=== PATIENT | male | born 1955 | race Caucasian/White ===

== ENCOUNTER 2018-05-08 08:21 | Outpatient (CLI) | payer BC ==
--- NOTE | 2018-05-08 14:24 | NM ---
NUCLEAR MEDICINE BONE SCAN: Date: 05/08/18 HISTORY: Renal cell carcinoma. Sclerotic lesion on CT in pelvis. FINDINGS: SPECT imaging was included. No abnormal uptake apparent within the pelvis in the region of concern on recent CT abdomen/pelvis. Degenerative-type uptake involves the shoulders and knees. At the posterior medial margin of a right mid rib, favored to be the 6th rib, a focus of increased ra diotracer uptake persists on the SPECT images. This area was not included on prior CT abdomen/pelvis. No other abnormal areas of radiotracer uptake are apparent. IMPRESSION: 1. Solitary focal abnormality at the posterior medial aspect of the right mid rib (favored to be the 6th rib). Further evaluation wanted. Please consider MRI of the right posterior chest wall, with and without Gadolinium contrast, for better characterization. 2. No abnormalities of the pelvis are demonstrated in area of concern on recent CT. POS: VICKIE
== END 2018-05-08 08:22 | disposition home or self-care (01) ==
LOC: NM 08:21
PROVIDERS: ATTEND Urology
DX: N28.89 Other specified disorders of kidney and ureter (principal); R94.8 Abnormal results of function studies of other organs and systems
CPT/HCPCS: 78306; A9503

== ENCOUNTER 2018-08-01 10:31 | Outpatient (CLI) | payer BC ==
[2018-08-01 12:41] LABS: #Basophils 0.1 thou/uL (0.0-0.2); #Eosinphils 0.2 thou/uL (0.0-0.7); #Lymphocytes 2.4 thou/uL (1.20-3.40); #Monocytes 0.6 thou/uL (0.11-0.59); #Neutrophils 2.2 thou/uL (1.40-6.50); %Basophils 1.1 % (0.0-1.0); %Eosinophils 3.8 % (0.0-10.0); %Monocytes 10.1 % (0.0-10.0); %Neutrophils 39.9 % (42.0-75.0); Hemoglobin 14.6 g/dL (14.0-18.0); Mean Corpuscular Hemoglobin 29.6 pg (27.0-31.0); Mean Corpuscular Volume 89.8 fL (78.0-98.0); Mean Platelet Volume 6.8 fL (7.4-10.4); Platelet Count 236 thou/uL (130-400); RBC Distribution Width 11.9 % (11.5-14.5); Red Blood Cell (RBC) Count 4.94 mill/uL (4.70-6.10); White Blood Cell (WBC) Count 5.4 thou/uL (4.8-10.8)
[2018-08-01 13:08] LABS: Anion Gap 12 mmol/L (10-20); BUN (Urea Nitrogen) 17 mg/dL (8.4-25.7); Calc. Creatinine Clearance 0 mL/min (70-130); Calcium 8.8 mg/dL (7.8-10.44); Carbon Dioxide 23 mmol/L (23-31); Chloride 108 mmol/L (98-107); Estimated GFR-MDRD 69; Glucose 103 mg/dL (80-115); Sodium 139 mmol/L (136-145)
== END 2018-08-01 10:32 | disposition home or self-care (01) ==
LOC: LABBT 10:31
PROVIDERS: ATTEND Surgery
DX: Z01.812 Encounter for preprocedural laboratory examination (principal); K40.20 Bilateral inguinal hernia, without obstruction or gangrene, not specified as recurrent
CPT/HCPCS: 80048; 85025

== ENCOUNTER → 2018-08-07 | Day surgery (SDC) | payer BC ==
[2018-08-01 10:56] VITALS: BMI 28.1
[~2018-08-07] MED LIST: Bupivacaine/Epinephrine 0.25% 30 ML VIAL ONE; Dexamethasone 20 MG/5 ML VIAL ONE; Fentanyl 100 MCG/2 ML VIAL ONE; Glycopyrrolate 0.2 MG/ML 5 ML SYRINGE ONE; Levofloxacin 500 mg/D5W 100 ml Premix Bag ONE; Midazolam HCl 2 mg/2 ml Vial ONE; Ondansetron PF 4 MG/2 ML Vial ONE; PHENYLEPHRINE-NS 100 MCG/ML 10 ML SYRINGE ONE; PROPOFOL 200 MG/20 ML VIAL ONE
--- NOTE | 2018-08-07 13:28 | OP ---
DATE OF PROCEDURE: 08/07/2018 PREOPERATIVE DIAGNOSIS: Bilateral inguinal hernia. POSTOPERATIVE DIAGNOSIS: Bilateral inguinal hernia. PROCEDURE: [place] laparoscopic bilateral hernia repair with mesh, 3DMax large. SURGEON: Han Mosqueda M.D. ANESTHESIA: General. COMPLICATIONS: None. SPECIMEN: None. FINDINGS: Bilateral inguinal hernia. ESTIMATED BLOOD LOSS: 20 mL. TECHNIQUE: The patient was taken to the operating room and placed supine on the table. After genera l anesthetic was obtained, a Jones was placed. The abdomen was shaved, prepped, and draped in a ster ile fashion. Curved incision made above the umbilicus. Cautery was used to dissect down to and into the abdominal cavity. The 11 mm applied medical balloon trocar was placed. The balloon inflated an d high-flow pneumoperitoneum was obtained. Left and right abdominal 8 mm robot trocars were placed. All ports were docked to the robot. The patient had been placed in Trendelenburg position. The per itoneum was opened in the bilateral lower abdomen and the preperitoneal space was bluntly entered in the bilateral groin. Blunt dissection was performed all the way to the pubic tubercle medially and t o the anterior superior iliac crest laterally. The shelving edge of inguinal ligament was fully expo sed. The indirect hernias were bilaterally dissected high up onto the peritoneum and out of the len rect hernia. The patient had a left side large direct defect that was dissected back high up onto th e peritoneum. A 3DMax large mesh was brought in the end-labeled medial aspects, placed over the pubi c tubercle medially. The mesh was laid out to cover the indirect, direct, and femoral areas. The me sh bilaterally was sewn to pubic tubercle using 2-0 Vicryl and lateral to the posterior fascia and 2- 0 Vicryl. The peritoneum was reapproximated using 3-0 Stratafix. All port sites were infiltrated us ing local anesthetic. All needles were removed and accounted for. All ports were removed under dire ct visualization without bleeding and pneumoperitoneum was let down. PDS was used to close the fasci al defect above the umbilicus. All incisions were irrigated and closed using 4-0 Monocryl and Dermab ond. The patient went to recovery in stable condition. All instrument counts, needle counts, lap co unts were correct.
--- NOTE | 2018-08-07 15:39 | EKG ---
Test Reason : PREOP Blood Pressure : / mmHG Vent. Rate : 054 BPM Atrial Rate : 054 BPM P-R Int : 160 ms QRS Dur : 100 ms QT Int : 436 ms P-R-T Axes : 050 -04 -04 degrees QTc Int : 413 ms Sinus bradycardia Incomplete right bundle branch block Nonspecific T wave abnormality Abnormal ECG Confirmed by ANDREINA BETANCOURT ([id number]) on 08/07/2018 3:39:11 PM Referred By: STEVEN Confirmed By:ANDREINA BETANCOURT
== END ==
LOC: SDC 08:59
PROVIDERS: ATTEND Surgery
PROC: 0YUA4JZ Supplement Bilateral Inguinal Region with Synthetic Substitute, Percutaneous Endoscopic Approach (ICD-10-PCS; principal; 2018-08-07)
DX: K40.20 Bilateral inguinal hernia, without obstruction or gangrene, not specified as recurrent (principal); Z88.0 Allergy status to penicillin; Z90.5 Acquired absence of kidney
CPT/HCPCS: 93005; 93010; 96374; C1781; J0131; J1100; J1956; J2250; J2405; J2704; J3010